=== PATIENT | female | born 2000 | race Two or more races ===

== ENCOUNTER 2023-04-13 21:07 | Emergency (ER) | payer OTHER ==
[~2023-04-13] VITALS: Ht 228.6 cm; Wt 68.0 kg
[2023-04-14] MEDS ORDERED: KETO10TA2 PO (04:37)
== END 2023-04-14 04:52 | disposition home or self-care (01) ==
LOC: ER 21:07
DX: N63.10 Unspecified lump in the right breast, unspecified quadrant (principal)